=== PATIENT | male | born 1950 | race Caucasian/White ===

== ENCOUNTER 2017-01-27 19:03 | Observation (INO) | payer MEDICARE, OTHER ==
--- NOTE | ~2017-01-27 | DS ---
Unit #: [id number] #: [id number] Patient: RASHID CHINO [id number] [address] [place], [place] [address] [id number] I MR#: [id number] NAME: RASHID CHINO ROOM: 474 Age: 66 Sex: M Admission Date: 01/27/2017 : 1950 Discharge Date: 01/30/2017 Attending Physician: Chris Abbott M.D. Primary Care Physician: Zulema Richard M.D. DISCHARGE SUMMARY DISCHARGE DIAGNOSIS Acute suppurative appendicitis. OPERATIVE PROCEDURE Laparoscopic appendectomy. DISCHARGE MEDICATIONS Home medications plus Lortab 7.5 one p.o. q.4 hours p.r.n. pain and Augmentin 875 mg one p.o. b.i.d. HISTORY OF PRESENT ILLNESS/HOSPITAL COURSE This is a 66-year-old obese white male, who has other medical disabilities to include back problems. He has some chronic obstructive pulmonary disease as well as gouty arthritis. He also has blood pressure issues. He presented with acute nausea, vomiting, abdominal pain with CT scan showing possible appendicitis. He was taken to surgery on January 27, per Dr. Abbott, where he was noted to have a purulent walled-off infected appendix. This was done laparoscopically. It was washed out over the right side. He was kept on intravenous antibiotics postop for two days. Presently at this time, he feels well. He is afebrile. His vital signs are stable. He looks good. He is ready to be discharged. He has passed some gas. He has tolerated a regular diet. He will come back to see us in the office for followup evaluation in 7-10 days. He is to do no heavy lifting or strenuous activity. Dictated by... Aldair Thurston/romeo TD: 02/01/2017 09:20 JOB #: [id number] Unit #: [id number] #: [id number] Patient: RASHID CHINO DISCHARGE SUMMARY Page 1 of 1 X Abdirashid Zavaleta MD X DISCHARGE SUMMARY
--- NOTE | ~2017-01-27 | OR ---
Unit #: [id number] #: [id number] Patient: RASHID CHINO [id number] [facility] [address] [facility]. [place], [place] [address] [id number] Harish MR#: [id number] NAME: RASHID CHINO ROOM: [facility] Date of Procedure: 01/27/2017 Admission Date: 01/27/2017 Surgeon: Chris Abbott M.D. : 1950 Attending Physician: Chris Abbott M.D. Primary Care Physician: Zulema Richard M.D. OPERATIVE REPORT PREOPERATIVE DIAGNOSIS Acute appendicitis. POSTOPERATIVE DIAGNOSIS Acute suppurative appendicitis. PROCEDURES PERFORMED Diagnostic laparoscopy, laparoscopic appendectomy. ANESTHESIA General endotracheal anesthesia. ESTIMATED BLOOD LOSS 25 mL. INDICATIONS FOR PROCEDURE A 66-year-old gentleman, who presents to the emergency room with right lower quadrant pain x36 hours, and he was found on CT scan to have acute appendicitis. DESCRIPTION OF PROCEDURE The patient was [place] [facility] [place] [facility] preoperative hold. The patient was seen and evaluated by myself and Anesthesia in preoperative hold. He was then transported to the operating room, and after induction of general endotracheal anesthesia, a Shearer catheter was placed. His abdominal wall hair was clipped, and he was prepped and draped in usual sterile fashion. He had already received IV antibiotics at the emergency room. A 5-mm supraumbilical incision was made. Veress needle was placed. Pneumoperitoneum was created. Then, a 5-mm trocar was placed. Laparoscope was introduced into peritoneal cavity under direct vision. A 5-mm suprapubic and a 12-mm infraumbilical trocar were placed. The right lower quadrant was assessed. There was a suppuration and exudate and I was able to peel back the terminal ileum. I identified the appendix, grasped and elevate the appendix. Dissected the mesoappendix away from the base of the appendix and then clamped, divided, and ligated the mesoappendix with an Endo-FRITZ. I was able to dissect the appendiceal stump all way to its entrance into the cecum and then a regular load was used to clamp, divide, and ligate the appendix. The appendix was very suppurative, so it was placed in EndoCatch bag and brought out through the 12 mm port site. I then recreated the pneumoperitoneum, suctioned out all the fluid exudate and blood from the right lower quadrant, ensured there was good hemostasis and then after all the loose fluid had been evacuated, Unit #: [id number] #: [id number] Patient: RASHID CHINO I irrigated copiously to clear the area and then suctioned the irrigant out. After the irrigant was suctioned out, I checked the small bowel and the cecum and there were no injuries. The staple lines were intact and there was good hemostasis. The 12 mm fascial defect was closed with a neoClose device. I then reduced the pneumoperitoneum as I removed laparoscope and trocars. 0.5% Marcaine with epinephrine was infiltrated in each trocar site. The skin was closed with 4-0 Monocryl subcuticular closure and Dermabond skin adhesive. Sponges and needle counts were correct x3. Shearer catheter was removed, and he was transported to recovery in stable condition. He will be admitted to the hospital for postoperative antibiotics and observation. Dictated by... Aldair Husain/gary TD: 01/28/2017 01:27 JOB #: [id number] OPERATIVE REPORT Page 1 of 1 X Chris Abbott MD X PROCEDURE OPERATIVE NOTE
--- NOTE | ~2017-01-27 | HP ---
Unit #: [id number] #: [id number] Patient: RASHID CHINO [id number] [address] [place], [place] [address] [id number] I MR#: [id number] NAME: RASHID CHINO ROOM: 474 Age: 66 Sex: M Admission Date: 01/27/2017 : 1950 Attending Physician: Chris Abbott M.D. Primary Care Physician: Zulema Richard M.D. HISTORY AND PHYSICAL HISTORY OF PRESENT ILLNESS This 66-year-old gentleman began with abdominal pain last Friday. Over the next 24-48 hours he developed nausea but never had fever or chills. Pain is now localized to the right lower quadrant and is increased in intensity. He came to the emergency room at [facility] and in the ER CT was consistent with acute appendicitis but no complicating factors. PAST MEDICAL HISTORY 1. COPD. 2. Hypertension. 3. Gout. 4. Retinitis pigmentosa. 5. Right thoracotomy for a spontaneous pneumothorax in the . 6. Hypercholesterolemia. ALLERGIES No known drug allergies. MEDICATIONS Include: 1. Bystolic 5 mg daily. 2. Zetia 10 mg daily. 3. Allopurinol 300 mg daily. 4. Fenofibrate daily. 5. Lasix 20 mg daily. 6. Lisinopril 5 mg daily. 7. Pravastatin 20 mg daily. SOCIAL HISTORY He smokes. Social alcohol drinker. Denies the use of recreational drugs. He is on disability due to his retinitis pigmentosa. He is . No children. FAMILY HISTORY He is unaware of any chronic or inheritable diseases. REVIEW OF SYSTEMS Denies fever or chills. He has had nausea but no vomiting. He has not had diarrhea. PHYSICAL EXAMINATION VITAL SIGNS: BMI is 36. In the operating room, he is afebrile. Vital signs are within normal limits. Unit #: [id number] #: [id number] Patient: RASHID CHINO HEENT: Unremarkable. No carotid bruits. LUNGS: Clear. HEART: Regular rate and rhythm. ABDOMEN: Distended. He has right lower quadrant rebound tenderness. EXTREMITIES: No edema. NEUROLOGIC: Grossly intact. SKIN: No rashes or lesions. DIAGNOSTIC STUDIES LABORATORY: Comprehensive metabolic panel is within normal limits. Urinalysis is negative for infection. INR 1.16. Hemoglobin 13.5, platelets 218,000, white count 18,600. IMAGING: CT scan as discussed. ASSESSMENT AND PLAN This is a 66-year-old gentleman with acute appendicitis. We discussed laparoscopic appendectomy including risks, benefits, complications and the possibility of conversion to open procedure. He understands and agrees to proceed. Dictated by Aldair Husain/kirby TD: 01/27/2017 21:41 JOB #: [id number] HISTORY AND PHYSICAL Page 1 of 1 X Chris Abbott MD HISTORY AND PHYSICAL
[~2017-01-27 19:03] MED LIST: ALBUTEROL1.25 MG/3 INH; ALLOPURINOL300 MG PO; BYSTOLIC5 MG PO; ESCITALOPRAM OX10 MG PO; FENOFIBRATE43 MG PO; LASIX PO; LEVAQUIN PO; PRAVASTATIN SOD20 MG PO; REFRESH5 ML OU; ZESTRIL5 MG PO; ZETIA PO
[2017-01-28 03:18] LABS: BASOPHIL# 0.1 X10e3 (0-0.3); BASOPHIL% 0.2 % (0-2.5); BUN/CREATININE RATIO 10.95; CALCIUM SERUM 8.4 mg/dL (8.4-10.2); CREATININE SERUM 2.1 mg/dL (0.6-1.4); GLOM FILT RATE Estimated 32.3 mL/min (>60); HEMATOCRIT 38.6 % (38.0-50.0); HEMOGLOBIN 12.3 gm/dL (13.0-16.0); LYMPHOCYTE# 1.3 X10e3 (1.0-3.5); LYMPHOCYTE% 4.2 % (17.0-45.0); MAGNESIUM 1.6 mg/dL (1.6-3.0); MEAN CELL VOLUME 101.4 FL (83-96); MEAN CORPUSCULAR HEMOGLOBIN 32.4 PG (28-34); MEAN PLATELET VOLUME 9.5 FL (6.5-11.5); MONOCYTE% 3.2 % (3.0-12.0); NEUTROPHIL# 28.7 X10e3 (1.5-7.1); NEUTROPHIL% 92.4 % (40-75); PHOSPHOROUS 5.8 mg/dL (2.5-4.6); PLATELET COUNT 182 X10e3 (140-420); POTASSIUM 4.3 mmol/L (3.5-5.1); RED BLOOD COUNT 3.81 X10e (3.90-5.60); RED CELL DISTRIBUTION WIDTH 14.8 % (11.0-15.5); WHITE BLOOD COUNT 31.1 X10e3 (4.0-10.5)
[2017-01-28 03:20] LABS: DIFF IND YES
[2017-01-28 03:49] LABS: PLATELET ESTIMATE NORMAL (NORMAL)
[2017-01-28 06:36] LABS: HEMOGLOBIN 12.7 gm/dL (13.0-16.0); MEAN CELL VOLUME 99.9 FL (83-96); MEAN CORPUSCULAR HEMOGLOBIN 32.5 PG (28-34); MEAN CORPUSCULAR HGB CONC 32.6 g/dL (30-36); MEAN PLATELET VOLUME 9.9 FL (6.5-11.5); RED BLOOD COUNT 3.9 X10e (3.90-5.60); RED CELL DISTRIBUTION WIDTH 14.8 % (11.0-15.5); WHITE BLOOD COUNT 32.5 X10e3 (4.0-10.5)
[2017-01-28 09:10] LABS: FOLATE (FOLIC ACID) 16.6 ng/mL (>5.8)
[2017-01-28 10:40] LABS: URINE APPEARANCE CLOUDY; URINE BLOOD 3+ (NEG); URINE COLOR DK YELLOW; URINE GLUCOSE NEG (NEG); URINE KETONE TRACE (NEG); URINE LEUKOCYTE ESTERASE TRACE (NEG); URINE NITRATE NEG (NEG); URINE PROTEIN 1+ (NEG); URINE SPECIFIC GRAVITY 1.044 (1.003-1.035)
[2017-01-28 10:41] LABS: URINE BACTERIA AUWI NEG (NEGATIVE); URINE SQUAMOUS EPITHELIAL CELL OCC /[HPF]
[2017-01-28 10:56] LABS: URINE BILIRUBIN NEG (NEG)
[2017-01-29 03:56] LABS: HEMATOCRIT 33.4 % (38.0-50.0); HEMOGLOBIN 10.9 gm/dL (13.0-16.0); MEAN CELL VOLUME 100.3 FL (83-96); MEAN CORPUSCULAR HEMOGLOBIN 32.9 PG (28-34); MEAN CORPUSCULAR HGB CONC 32.8 g/dL (30-36); MEAN PLATELET VOLUME 9.4 FL (6.5-11.5); RED BLOOD COUNT 3.33 X10e (3.90-5.60); RED CELL DISTRIBUTION WIDTH 15.2 % (11.0-15.5); WHITE BLOOD COUNT 17.4 X10e3 (4.0-10.5)
[2017-01-29 04:15] LABS: BUN/CREATININE RATIO 16.47; CALCIUM SERUM 8.1 mg/dL (8.4-10.2); CREATININE SERUM 1.7 mg/dL (0.6-1.4); GLOM FILT RATE Estimated 41.7 mL/min (>60); MAGNESIUM 1.9 mg/dL (1.6-3.0); PHOSPHOROUS 2.3 mg/dL (2.5-4.6); POTASSIUM 3.7 mmol/L (3.5-5.1)
[2017-01-29] MEDS ORDERED: ATENOLOL PO (13:00)
[2017-01-30 03:25] LABS: HEMATOCRIT 33.9 % (38.0-50.0); MEAN CELL VOLUME 99.9 FL (83-96); MEAN CORPUSCULAR HEMOGLOBIN 32.5 PG (28-34); MEAN CORPUSCULAR HGB CONC 32.6 g/dL (30-36); MEAN PLATELET VOLUME 9.8 FL (6.5-11.5); RED BLOOD COUNT 3.39 X10e (3.90-5.60); RED CELL DISTRIBUTION WIDTH 15.2 % (11.0-15.5); WHITE BLOOD COUNT 12.2 X10e3 (4.0-10.5)
[2017-01-30 03:52] LABS: BUN/CREATININE RATIO 11.42; CALCIUM SERUM 8.5 mg/dL (8.4-10.2); CREATININE SERUM 1.4 mg/dL (0.6-1.4); GLOM FILT RATE Estimated 52.7 mL/min (>60); MAGNESIUM 1.9 mg/dL (1.6-3.0); PHOSPHOROUS 2.5 mg/dL (2.5-4.6); POTASSIUM 4.2 mmol/L (3.5-5.1)
[2017-01-30] MEDS ORDERED: LORTAB 7.5-3251 EACH PO (07:19)
[2017-01-30] MEDS ORDERED: AUGMENTIN PO (07:19)
== END 2017-01-30 08:16 | disposition home or self-care (01) ==
LOC: C4C 19:03
PROVIDERS: Specialist
DX: K35.80 Unspecified acute appendicitis (principal); J44.9 Chronic obstructive pulmonary disease, unspecified; I10 Essential (primary) hypertension; M10.9 Gout, unspecified; F17.200 Nicotine dependence, unspecified, uncomplicated; H35.52 Pigmentary retinal dystrophy; E11.9 Type 2 diabetes mellitus without complications
CPT/HCPCS: 80048; 81003; 82607; 82746; 82747; 82947; 83036; 83735; 84100; 85025; 85027; 88304; 94640; 94760; 96365; 96366; 96375; 96376; G0378; G0379; J0330; J1885; J2250; J2405; J2543; J2710; J3010